=== PATIENT | male | born 1950 | race Caucasian/White ===

== ENCOUNTER 2021-11-06 17:37 | Emergency (ER) | payer OTHER ==
[~2021-11-06] VITALS: Ht 172.7 cm; Wt 104.3 kg
[2021-11-06 17:52] VITALS: BP 144/79
--- NOTE | 2021-11-06 17:55 | NUR ---
PATIENT EVALUATED IN [address] BY DR. EASTON, STATED PT OKAY TO WAIT IN LOBBY
--- NOTE | 2021-11-06 19:15 | NUR ---
MERI FIGUEROA examining patient.
[2021-11-06] MEDS ORDERED: BACITRACIN OP OINT 500 UNITS/GM 3.5 GM TUBE OP SCH (19:20)
--- NOTE | 2021-11-06 20:17 | NUR ---
Called -no show in lobby or outside.
--- NOTE | 2021-11-06 20:25 | NUR ---
Patient left without D/C papers.
== END 2021-11-06 20:25 | disposition home or self-care (01) ==
LOC: MED 17:37
DX: S80.211A Abrasion, right knee, initial encounter (principal); S00.01XA Abrasion of scalp, initial encounter; W18.30XA Fall on same level, unspecified, initial encounter; Y93.89 Activity, other specified; Y92.89 Other specified places as the place of occurrence of the external cause; Y99.8 Other external cause status
CPT/HCPCS: 99283